=== PATIENT | male | born 1980 | race Caucasian/White ===

== ENCOUNTER 2018-03-20 14:41 | Emergency (ER) | payer OTHER, SELFPAY ==
[2018-03-20 15:02] VITALS: BP 139/78; PULSE 84; RESP 14; TEMP 36.8; O2SAT 87
--- NOTE | 2018-03-20 15:06 | DI.RAD.S_ITS ---
PROCEDURE: XR TIBIA FIBULA RT 2V INDICATIONS: crush injury bilat lower ext TECHNIQUE: 2 views of the tibia and fibula were acquired. COMPARISON: None. FINDINGS: Bones: No fractures or dislocations. No suspicious bony lesions. Soft tissues: No suspicious soft tissue calcifications or masses. IMPRESSION: No fracture. No osseous lesion. If symptoms and/or clinical suspicion for pathology persists, further assessment with repeat radiographs (7-10 days) or advanced imaging (e.g. CT, MRI or bone scan) may be helpful. Dictated by: Sofía Kolb MD, PhD on 03/20/2018 at 15:33 Approved by: Sofía Kolb MD, PhD on 03/20/2018 at 15:34
--- NOTE | 2018-03-20 15:06 | DI.RAD.S_ITS ---
PROCEDURE: XR TIBIA FUBULA RT 2V INDICATIONS: crush injury bilat lower ext TECHNIQUE: 2 views of the tibia and fibula were acquired. COMPARISON: None. FINDINGS: Bones: No fractures or dislocations. No suspicious bony lesions. Soft tissues: No suspicious soft tissue calcifications or masses. IMPRESSION: No fracture. No osseous lesion. If symptoms and/or clinical suspicion for pathology persists, further assessment with repeat radiographs (7-10 days) or advanced imaging (e.g. CT, MRI or bone scan) may be helpful. Dictated by: Sofía Kolb MD, PhD on 03/20/2018 at 15:32 Approved by: Sofía Kolb MD, PhD on 03/20/2018 at 15:33
--- NOTE | 2018-03-20 16:17 | ED.LOWEXIN ---
HPI - Extremity Injury (Lower) <LAN Boone - Last Filed: 03/20/18 18:53> General Chief Complaint: Extremity Injury, Lower Stated Complaint: crush injury to shins from car door Time Seen by Provider: 03/20/18 16:00 Source: patient Mode of arrival: ambulatory Limitations: no limitations History of Present Illness HPI Narrative: Patient is a 37-year-old male who presents with a chief complaint of bilateral lower leg pain. He states that his lower legs for pinched between a car door and the car. This occurred approximately noon. He was given 1 mg IM Dilaudid by EMS on [place]. He states his last tetanus shot was about 20 years ago. He denies any numbness or tingling and states he is able to ambulate. He states he has bruising and small lacerations on bilateral lower extremities. Related Data Home Medications Medication Instructions Recorded Confirmed No Known Home Medications 03/20/18 03/20/18 Allergies Allergy/AdvReac Type Severity Reaction Status Date / Time No Known Drug Allergies Allergy Verified 03/20/18 15:06 Review of Systems <LAN Boone - Last Filed: 03/20/18 18:53> Review of Systems GENERAL: Denies chills, fatigue, malaise, fever, sweats. HEENT: Denies sinus pain, ear pain, sore throat, difficulty swallowing, dizziness. RESPIRATORY: Denies dyspnea, cough, wheezing, hemoptysis, sputum. CARDIOVASCULAR: Denies chest pain, palpitations, orthopnea, edema, GASTROINTESTINAL: Denies nausea, vomiting, abdominal pain, diarrhea, constipation, melena. : Denies dysuria, frequency, incontinence, hematuria, urinary retention. MUSCULOSKELETAL: See HPI SKIN: See HPI NEUROLOGIC: Denies weakness, headache, numbness, change in speech, confusion, seizures, incoordination. PSYCHIATRIC: No concerning psychosocial issues. 12 point review of systems is negative except for those stated above Exam <LAN Boone - Last Filed: 03/20/18 18:53> Narrative Exam Narrative: GENERAL: This is a well-nourished, well-developed patient, no acute distress HEAD: Atraumatic. Normocephalic. No temporal or scalp tenderness. EYES: Pupils equal round and reactive. Extraocular motions intact. No scleral icterus. No injection or drainage. ENT: Nose without bleeding, purulent drainage or septal hematoma. Throat without erythema, tonsillar hypertrophy or exudate. Uvula midline. Airway patent. NECK: Trachea midline. No JVD or lymphadenopathy. Supple, nontender, no meningeal signs. CARDIOVASCULAR: Regular rate and rhythm without murmurs, gallops, or rubs. RESPIRATORY: Clear to auscultation. Breath sounds equal bilaterally. No wheezes, rales, or rhonchi. GASTROINTESTINAL: Abdomen soft, non-tender, nondistended. No hepato-splenomegaly, or palpable masses. No guarding. EXTREMITIES: Generalized pain to palpation bilateral lower extremities. Calves are soft bilaterally. Positive pedal pulses both sides. BACK: Nontender without deformity or crepitance. No flank tenderness. NEURO: AOx3. SKIN: 1.5 cm laceration on anterior aspect of left willis. 0.5 cm laceration on anterior aspect of right willis. Bleeding is controlled at both sites. No extending erythema or active bleeding. Ecchymosis surrounding both lacerations Initial Vital Signs Initial Vital Signs: Vital Signs Temperature 98.2 F 03/20/18 15:02 Pulse Rate 84 03/20/18 15:02 Respiratory Rate 14 03/20/18 15:02 Blood Pressure 139/78 03/20/18 15:02 Pulse Oximetry 87 L 03/20/18 15:02 <Yarelis Mathur DO - Last Filed: 03/21/18 11:44> Initial Vital Signs Initial Vital Signs: Vital Signs Temperature 98.2 F 03/20/18 15:02 Pulse Rate 84 03/20/18 15:02 Respiratory Rate 14 03/20/18 15:02 Blood Pressure 139/78 03/20/18 15:02 Pulse Oximetry 87 L 03/20/18 15:02 Course <PAUL Boone-LEE - Last Filed: 03/20/18 18:53> Orders Ordered: Discontinued Medications Diphtheria/Tetanus/Acell Pertussis (Adacel) 0.5 ml IM .ONCE ONE Stop: 03/20/18 16:01 Last Admin: 03/20/18 16:21 Dose: 0.5 ml Ketorolac Tromethamine (Toradol) 60 mg IM NOW ONE Stop: 03/20/18 16:01 Last Admin: 12/11/18 16:21 Dose: 60 mg Vital Signs - 8 hr 03/20/18 15:02 Temperature 98.2 F Pulse Rate 84 Respiratory Rate 14 Blood Pressure 139/78 Pulse Oximetry 87 L <Yarelis Mathur DO - Last Filed: 03/21/18 11:44> Orders Ordered: Discontinued Medications Diphtheria/Tetanus/Acell Pertussis (Adacel) 0.5 ml IM .ONCE ONE Stop: 03/20/18 16:01 Last Admin: 03/20/18 16:21 Dose: 0.5 ml Ketorolac Tromethamine (Toradol) 60 mg IM NOW ONE Stop: 03/20/18 16:01 Last Admin: 03/20/18 16:21 Dose: 60 mg Vital Signs - 8 hr 03/20/18 15:02 Temperature 98.2 F Pulse Rate 84 Respiratory Rate 14 Blood Pressure 139/78 Pulse Oximetry 87 L MDM - Extremity Injury (Lower) <LAN Boone - Last Filed: 03/20/18 18:53> Imaging Data tib fib r xray: Radiologist's impression: [address] [address] XRay Report Signed Patient: Michelle Carr#: [id number] : 1980Acct:[id number] Age/Sex: 37 / MDate of Service: 03/20/18 Loc: ED Accession Number: [id number] Procedure: XR tibia fibula RT 2V Ordering Provider: Tg Crowley PROCEDURE: XR TIBIA FUBULA RT 2V INDICATIONS: crush injury bilat lower ext TECHNIQUE: 2 views of the tibia and fibula were acquired. COMPARISON: None. FINDINGS: Bones: No fractures or dislocations. No suspicious bony lesions. Soft tissues: No suspicious soft tissue calcifications or masses. IMPRESSION: No fracture. No osseous lesion. If symptoms and/or clinical suspicion for pathology persists, further assessment with repeat radiographs (7-10 days) or advanced imaging (e.g. CT, MRI or bone scan) may be helpful. Dictated by: Sofía Kolb MD, PhD on 03/20/2018 at 15:32 Approved by: Sofía Kolb MD, PhD on 03/20/2018 at 15:33 tib fin left xray: Radiologist's impression: [address] [address] XRay Report Signed Patient: Michelle Carr#: [id number] : 1980Acct:[id number] Age/Sex: 37 / MDate of Service: 03/20/18 Loc: ED Accession Number: [id number] Procedure: XR tibia fibula LT 2V Ordering Provider: Tg Crowley-LEE PROCEDURE: XR TIBIA FIBULA RT 2V INDICATIONS: crush injury bilat lower ext TECHNIQUE: 2 views of the tibia and fibula were acquired. COMPARISON: None. FINDINGS: Bones: No fractures or dislocations. No suspicious bony lesions. Soft tissues: No suspicious soft tissue calcifications or masses. IMPRESSION: No fracture. No osseous lesion. If symptoms and/or clinical suspicion for pathology persists, further assessment with repeat radiographs (7-10 days) or advanced imaging (e.g. CT, MRI or bone scan) may be helpful. Dictated by: Sofía Kolb MD, PhD on 03/20/2018 at 15:33 Approved by: Sofía Kolb MD, PhD on 03/20/2018 at 15:34 [facility] Narrative Medical decision making narrative: Patient is a 37-year-old male who presents after compression of his bilateral lower extremities between a car and a car door. He had a negative x-ray tib-fib bilaterally. He does have small abrasions as well as ecchymosis. He had a Toradol injection for pain, an updated tetanus in his this cleansed. I discussed at length rest, ice, [id number] medications as needed and able for pain as well as monitoring circulation in the bilateral feet. He is neurovascularly intact, nontoxic and stable in the emergency department. I discussed at length monitoring for signs and symptoms of infection. He had no questions or concerns upon discharge. Discharge Plan Departure Patient Disposition: Home Clinical Impression: Abrasion, Contusion, Acute leg pain Discharge Date/Time: 03/20/18 17:07 Interventions: ED Discharge Assessment Last Done: 03/20/18 17:07 Instructions: DI for Contusion, DI for Abrasion, DI for Leg Pain Activity Restrictions/Additional Instructions: Your x-rays came back negative today. Please follow-up with primary care provider if he notices any signs or symptoms of infection including pus, fever or extending redness. Please rest her legs over the next few days. Please use [id number] pain medication as needed and able for pain. Please follow-up if you are concerned about the circulation to her feet. Prescriptions: No Action No Known Home Medications RF: 0 <Yarelis Mathur, - Last Filed: 03/21/18 11:44> [place] [facility] Attending [place] Attestation: I was immediately available in the department for consultation. Documentation has been reviewed. I agree with assessment and plan.
[2018-03-20] MEDS: KETOROLAC 60 MG/2 ML VIAL IM (16:21)
[2018-03-20] MEDS: TET,DIPH,PERTUSS(ACELL),VAC/PF 0.5 ML SYRINGE IM (16:21)
--- NOTE | 2018-03-20 16:37 | PC.NURSE ---
abrasions to bilateral shins. Right has a small puncture wound with old bleeding. No active bleeding at this time. Bruising and mild swelling noted. Left willis has abrasion present with some bruising and swelling noted no bleeding at this time. Bilateral abrasions cleaned with chlorahexadine and water. Bandaid with bacitracin placed.
== END 2018-03-20 17:07 | disposition home or self-care (01) ==
PROVIDERS: Emergency Provider Nurse Practitioner Family; Family Provider Family Medicine
DX: M79.604 Pain in right leg (principal); M79.605 Pain in left leg; S80.811A Abrasion, right lower leg, initial encounter; S80.812A Abrasion, left lower leg, initial encounter; W23.0XXA Caught, crushed, jammed, or pinched between moving objects, initial encounter
CPT/HCPCS: 73590; 90471; 96372; 99283; 90715; J1885

== ENCOUNTER → 2019-04-29 10:05 | Outpatient (CLI) | payer OTHER, SELFPAY ==
--- NOTE | 2019-04-29 10:07 | DI.RAD.S_ITS ---
PROCEDURE: XR KNEE LT 3V INDICATIONS: Postsurgical pain TECHNIQUE: 3 views of the knee were acquired. COMPARISON: None. FINDINGS: Bones: No fractures or dislocations. No suspicious bony lesions. Soft tissues: No joint effusion. No suspicious soft tissue calcifications. IMPRESSION: Normal for age, source of current postsurgical pain symptoms is not seen. Dictated by: Neri Hernandez M.D. on 04/29/2019 at 12:21 Approved by: Neri Hernandez M.D. on 04/29/2019 at 12:21
== END ==
PROVIDERS: PCP Family Medicine; Visit Provider Physical Medicine & Rehabilitation
DX: G89.18 Other acute postprocedural pain (principal); M25.562 Pain in left knee
CPT/HCPCS: 73562

== ENCOUNTER 2020-08-11 17:46 | Emergency (ER) | payer OTHER, MEDICAID, SELFPAY ==
[2020-08-11] VITALS (11 sets, daily range): BP systolic 105–139; BP diastolic 69–86; PULSE 56–80; RESP 10–31; TEMP 37.1; O2SAT 95–100; BMI 28.5
--- NOTE | 2020-08-11 17:57 | DI.RAD.S_ITS ---
PROCEDURE: XR CHEST 1V INDICATIONS: chest pain TECHNIQUE: One view of the chest was acquired. COMPARISON: None. FINDINGS: Surgical changes and devices: None. Lungs and pleura: Lungs are clear. No pleural effusions or pneumothorax. Mediastinum: Mediastinal contours appear normal. Heart size is normal. Bones and chest wall: No suspicious bony lesions. Overlying soft tissues appear unremarkable. IMPRESSION: No acute cardiopulmonary pathology. Dictated by: Isaiah Segura M.D. on 08/11/2020 at 18:24 Approved by: Isaiah Segura M.D. on 08/11/2020 at 18:24
[2020-08-11 18:22] LABS: Add Manual Diff / Slide Review NO; Basophils Absolute Auto 0 /uL (0-100); Basophils Percent Auto 0.6 % (0-2); Eosinophils Absolute Auto 100 /uL (0-450); Eosinophils Percent Auto 0.9 % (2-4); Hemoglobin 15.1 g/dL (13.5-17.5); Lymphocytes Absolute Auto 2000 /uL (1100-4500); Lymphocytes Percent Auto 34.1 % (25-40); Mean Corpuscular HGB Conc 35.1 % (30-36); Mean Corpuscular Hemoglobin 30.6 PG (26-34); Mean Corpuscular Volume 87.2 fL (80-100); Monocytes Absolute Auto 500 /uL (0-900); Monocytes Percent Auto 7.9 % (3-14); Neutrophils Absolute Auto 3200 /uL (1500-7000); Neutrophils Percent Auto 56.5 % (50-75); Platelet Count 242 X10^3/uL (150-400); Red Blood Cell Count 4.94 X10^6/uL (4.5-5.9); Red Cell Distribution Width 12.4 % (11.6-14.8); White Blood Cell Count 5.8 X10^3/uL (4.5-11.0)
[2020-08-11 18:25] LABS: INR 1.1 (0.9-1.3); Prothrombin Time 11.9 SECONDS (10.1-12.7)
[2020-08-11 18:28] LABS: PTT Partial Thromboplastin Tim 36 SECONDS (26.4-36.2)
--- NOTE | 2020-08-11 18:29 | ED.CHESTPAIN ---
HPI - Chest Pain General Chief Complaint: Chest Pain Stated Complaint: Chest pain Time Seen by Provider: 08/11/20 18:05 Source: patient Mode of arrival: Ambulatory Limitations: no limitations History of Present Illness HPI narrative: 40-year-old male nonsmoker with history of epigastric pain and suspicion of reflux presents with a chief complaint of many days of upper abdominal and lower chest pain. He states it is burning and aching in nature and seems to be exacerbated by eating and laying flat. He occasionally has hiccups and has a odd effervescent taste in the back of his mouth. He has seen his primary care provider and has had prescriptions for not only PPIs but also recently started Carafate. He has an upcoming appointment with a gastro enterolysis, presumably to discuss the utility of endoscopy. The patient denies any exertional component to his symptoms nor radiation to his back. He is not short of breath and has had no cough, fever or chills. He denies recent travel, history of blood clot or cancer. Patient states that he is asymptomatic during his visit MD complaint: chest pain Onset (ago): week(s) Duration: intermittent Pain location: substernal Severity: moderate Quality: aching and other Pain radiation: none Exacerbating factors: eating and supine Treatments prior to arrival chest pain: other Related Data Home Medications Medication Instructions Recorded Confirmed acetaminophen 500 mg tablet 1,000 mg PO BID tab 04/22/19 10/02/19 diphenhydramine 25 2 tab PO BEDTIME PRN 04/22/19 10/02/19 mg-acetaminophen 500 mg tablet trazodone PO 06/03/19 10/02/19 etodolac 600 mg tablet,extended 600 mg PO DAILY 10/02/19 10/02/19 release 24 hr Allergies Allergy/AdvReac Type Severity Reaction Status Date / Time No Known Drug Allergies Allergy Verified 08/11/20 17:58 Review of Systems Constitutional Constitutional: Denies chills, Denies fatigue, Denies fever(s), Denies frequent falls, Denies lethargy and Denies weakness Eyes Eyes: Denies change in vision, Denies eye discharge, Denies irritation and Denies loss of vision ENT Ears, Nose, Mouth, and Throat: Denies change in voice, Denies dizziness, Denies neck pain, Denies sore throat and Denies throat swelling Cardiovascular Cardiovascular: Reports chest pain, Denies irregular heart rhythm, Denies lightheadedness, Denies palpitations, Denies dyspnea, Denies dyspnea on exertion and Denies orthopnea Respiratory Respiratory: Denies cough, Denies dyspnea, Denies dyspnea on exertion and Denies wheezing Gastrointestinal Gastrointestinal: Reports abdominal pain, Reports belching, Denies change in bowel habits, Denies diarrhea, Denies nausea and Denies vomiting Musculoskeletal Musculoskeletal: Denies neck pain and Denies numbness Integumentary/Breasts Skin/Breast: Denies pruritus, Denies erythema, Denies rash and Denies wounds Neurologic Neurologic: Denies behavioral changes, Denies confusion, Denies dizziness, Denies frequent falls, Denies loss of vision, Denies numbness and Denies weakness Psychiatric Psychiatric: Denies anxiety, Denies behavioral changes, Denies confusion, Denies depression, Denies homicidal ideation and Denies suicidal ideation Endocrine Endocrine: Denies fatigue, Denies flushing and Denies palpitations Hematologic/Lymphatic Hematologic/Lymphatic: Denies easy bruising Allergic/Immunologic Allergic/Immunologic: Denies urticaria, Denies throat swelling and Denies wheezing Patient History Medical History Chronic knee pain Gait instability Lateral meniscal tear Surgical History H/O arthroscopy of right knee Status post lateral meniscectomy of left knee Family History Father Arthritis Hyperlipidemia Grandfather Cancer Heart disease Diabetes mellitus Glaucoma Grandmother Colon cancer Diabetes mellitus Hypertension Congestive heart failure Social History Smoking Status: Never smoker Smoking Status: Never smoker alcohol intake frequency: holidays/special occasions only Substance Use Type: does not use Exam Narrative Exam Narrative: GENERAL: [40] year old patient appears stated age. Well-nourished, well-developed patient, in mild distress. HEAD: Atraumatic. Normocephalic. EYES: Pupils equal round and reactive. Extraocular motions intact. No scleral icterus. No injection or drainage. ENT: Nose without bleeding, purulent drainage. Throat without erythema, tonsillar hypertrophy or exudate. Airway patent. NECK: Trachea midline. Non tender CARDIOVASCULAR: Regular rate and rhythm without murmurs, gallops, or rubs. RESPIRATORY: Clear to auscultation. Breath sounds equal bilaterally. No wheezes, rales, or rhonchi. GASTROINTESTINAL: Abdomen soft, non-tender, nondistended. EXTREMITIES: No edema or joint tenderness. BACK: Nontender without deformity or crepitance. No flank tenderness. NEURO: AOx3. SKIN: No rash or erythema of visible areas Initial Vital Signs Initial Vital Signs: Vital Signs Temperature 98.7 F 08/11/20 17:50 Pulse Rate 61 08/11/20 17:50 Respiratory Rate 23 08/11/20 17:50 Blood Pressure 139/79 08/11/20 17:50 Pulse Oximetry 98 08/11/20 17:50 Scores HEART Score Heart Score history: Slightly Suspicious Heart Score EKG: Normal Heart Score Age: < 45 years old Heart Score risk factors: No known risk factors Heart Score troponin: < or = to normal limit Heart Score Total: 0 Course Orders Ordered: ED Orders 08/11/20 17:52 Complete Blood Count AUTO DIFF Stat Comprehensive Metabolic Panel Stat Lipase Stat Partial Thromboplastin Time Stat Prothrombin Time INR Stat Troponin & CK Cardiac Panel Stat 08/11/20 17:54 EKG-12 Lead Stat 08/11/20 17:57 XR chest 1V Stat 08/11/20 19:01 EKG-12 Lead Stat 08/11/20 19:22 D Dimer Stat Vital Signs Vital signs: Vital Signs - 8 hr 08/11/20 17:50 08/11/20 17:54 08/11/20 18:00 Temperature 98.7 F Pulse Rate 61 61 65 Respiratory Rate 23 10 L 18 Blood Pressure 139/79 Pulse Oximetry 98 100 98 08/11/20 18:01 08/11/20 18:30 08/11/20 18:40 Temperature Pulse Rate 67 57 L 65 Respiratory Rate 20 17 31 H Blood Pressure 139/86 113/71 105/69 Pulse Oximetry 96 97 98 08/11/20 19:00 08/11/20 19:30 Temperature Pulse Rate 56 L 61 Respiratory Rate 19 25 H Blood Pressure 109/70 121/80 Pulse Oximetry 95 96 MDM - Chest Pain Lab Data Result diagrams: 08/11/20 17:52 08/11/20 17:52 Labs: Lab Results 08/11/20 08/11/20 08/11/20 Range/Units 17:52 17:52 17:52 WBC 5.8 (4.5-11.0) X10^3/uL RBC 4.94 (4.5-5.9) X10^6/uL Hgb 15.1 (13.5-17.5) g/dL Hct 43.0 (41-53) % MCV 87.2 (80-100) fL MCH 30.6 (26-34) PG MCHC 35.1 (30-36) % RDW 12.4 (11.6-14.8) % Plt Count 242 (150-400) X10^3/uL Neut % (Auto) 56.5 (50-75) % Lymph % (Auto) 34.1 (25-40) % [place] % (Auto) 7.9 (3-14) % Eos % (Auto) 0.9 L (2-4) % Baso % (Auto) 0.6 (0-2) % Neut # (Auto) 3200 (5143-9397) /uL Lymph # (Auto) 2000 (8310-5115) /uL [place] # (Auto) 500 (0-900) /uL Eos # (Auto) 100 (0-450) /uL Baso # (Auto) 0 (0-100) /uL PT 11.9 (10.1-12.7) SECONDS INR 1.1 (0.9-1.3) APTT 36 (26.4-36.2) SECONDS D-Dimer (<230) ng/mL Sodium 140 (137-145) mmol/L Potassium 4.2 (3.4-5.1) mmol/L Chloride 103 (98-107) mmol/L Carbon Dioxide 28 (22-32) mmol/L BUN 8 L (9-20) mg/dL Creatinine 0.99 (0.66-1.25) mg/dL Estimated GFR > 60.0 (>60) mL/min BUN/Creatinine Ratio 8.1 (6-22) Glucose 101 H (70-100) mg/dL Calcium 9.7 (8.4-10.2) mg/dL Total Bilirubin 0.5 (0.2-1.3) mg/dL AST 37 (17-59) IU/L ALT 46 (<50) IU/L Alkaline Phosphatase 69 (38-126) U/L Total Creatine Kinase 133 (55-170) U/L CK-MB (CK-2) 0.78 (<2.37) ng/mL CK-MB (CK-2) Rel Index 0.6 L (1.5-5.0) % Troponin I < 0.012 (0.01-0.034) ng/mL Total Protein 8.1 (6.3-8.2) g/dL Albumin 4.8 (3.5-5.0) g/dL Globulin 3.3 (1.7-4.1) g/dL Albumin/Globulin Ratio 1.5 (1.0-2.8) Lipase 94 (23-300) U/L 08/11/20 Range/Units 19:22 WBC (4.5-11.0) X10^3/uL RBC (4.5-5.9) X10^6/uL Hgb (13.5-17.5) g/dL Hct (41-53) % MCV (80-100) fL MCH (26-34) PG MCHC (30-36) % RDW (11.6-14.8) % Plt Count (150-400) X10^3/uL Neut % (Auto) (50-75) % Lymph % (Auto) (25-40) % [place] % (Auto) (3-14) % Eos % (Auto) (2-4) % Baso % (Auto) (0-2) % Neut # (Auto) (1381-4743) /uL Lymph # (Auto) (6789-3495) /uL [place] # (Auto) (0-900) /uL Eos # (Auto) (0-450) /uL Baso # (Auto) (0-100) /uL PT (10.1-12.7) SECONDS INR (0.9-1.3) APTT (26.4-36.2) SECONDS D-Dimer < 200 (<230) ng/mL Sodium (137-145) mmol/L Potassium (3.4-5.1) mmol/L Chloride (98-107) mmol/L Carbon Dioxide (22-32) mmol/L BUN (9-20) mg/dL Creatinine (0.66-1.25) mg/dL Estimated GFR (>60) mL/min BUN/Creatinine Ratio (6-22) Glucose (70-100) mg/dL Calcium (8.4-10.2) mg/dL Total Bilirubin (0.2-1.3) mg/dL AST (17-59) IU/L ALT (<50) IU/L Alkaline Phosphatase (38-126) U/L Total Creatine Kinase (55-170) U/L CK-MB (CK-2) (<2.37) ng/mL CK-MB (CK-2) Rel Index (1.5-5.0) % Troponin I (0.01-0.034) ng/mL Total Protein (6.3-8.2) g/dL Albumin (3.5-5.0) g/dL Globulin (1.7-4.1) g/dL Albumin/Globulin Ratio (1.0-2.8) Lipase (23-300) U/L Urine Dip Bedside Urine Glucose Negative Bedside Urine Bilirubin - Negative Bedside Urine Ketone - Negative Urine Specific [place] 1.015 Bedside Urine Occult Blood - Negative Bedside Urine pH 6.5 Bedside Urine Protein - Negative Bedside Urine Urobilinogen - Negative Bedside Urine Nitrite - Negative Bedside Urine Leukocytes - Negative Esterase Imaging Data Chest x-ray: Radiologist's Impression: [address] [address] ReportSigned Patient: Michelle Carr#: [id number]: 1980Acct:[id number]/Sex: 40 / MDate of Service: 08/11/20Loc: EDAccession Number: [id number] Procedure: XR chest 1V Ordering Provider: Graeme Batista D.O. PROCEDURE: XR CHEST 1V INDICATIONS: chest pain TECHNIQUE: One view of the chest was acquired. COMPARISON: None. FINDINGS: Surgical changes and devices: None. Lungs and pleura: Lungs are clear. No pleural effusions or pneumothorax. Mediastinum: Mediastinal contours appear normal. Heart size is normal. Bones and chest wall: No suspicious bony lesions. Overlying soft tissues appear unremarkable. IMPRESSION: No acute cardiopulmonary pathology. Dictated by: Isaiah Segura M.D. on 08/11/2020 at 18:24 Approved by: Isaiah Segura M.D. on 08/11/2020 at 18:24 [facility] Narrative Medical decision making narrative: Multiple causes of chest pain considered including [place], PE, pneumothorax, pneumonia, aortic dissection, and pleurisy. Patient reports no radiation, no diaphoresis, no provocation with exertion, and no vomiting Patient's symptoms improved over duration of stay with above-stated therapies. Findings and discharge diagnosis discussed with patient/family followed by verbalization of understanding Return precautions discussed with patient/family whom verbalize understanding. Discharge Plan Departure Patient Disposition: Home Clinical Impression: Atypical chest pain, Abdominal pain, epigastric Instructions: DI for Atypical Chest Pain, DI for Epigastric Pain Activity Restrictions/Additional Instructions: *You have been diagnosed with [atypical chest pain. Your history, physical exam, EKGs and blood work would suggest very low likelihood of a cardiac or blood clot issue.] *What to do: *Please continue to take your regular medications as directed. [ ] New medication prescriptions sent to your pharmacy: [ ] [ ] New medication written as a paper prescription [x ] No new medications given *Please follow up with your primary care provider in 2-3 days, call for an appointment. Let them know you were seen in the Emergency Department and that we ask that you be seen in follow up. We will electronically transmit a record of today's note if your PCP is in our system * avoid alcohol, caffeine, nicotine, spicy foods, fatty foods, dairy and other possible dietary triggers. *Return to Emergency Department if you should have any new, worsening or concerning symptoms, such as [fever greater than 101 F, shaking chills, worsening pain, persistent vomiting or other bothersome symptoms] Prescriptions: No Action acetaminophen [Tylenol Extra Strength] 500 mg tablet 1,000 mg PO BID RF: 0 diphenhydramine-acetaminophen [Tylenol PM Extra Strength] 25-500 mg tablet 2 tab PO BEDTIME PRNRF: 0 trazodone PO RF: 0 etodolac 600 mg tablet extended release 24 hr 600 mg PO DAILY RF: 0 Referrals: Michael Flowers MD [Primary Care Provider] -
[2020-08-11 18:40] LABS: Alanine Aminotransferase 46 IU/L (<50); Albumin 4.8 g/dL (3.5-5.0); Albumin Globulin Ratio 1.5 (1.0-2.8); Alkaline Phosphatase 69 U/L (38-126); Aspartate Aminotransferase 37 IU/L (17-59); BUN Creatinine Ratio 8.1 (6-22); Bilirubin Total 0.5 mg/dL (0.2-1.3); Blood Urea Nitrogen 8 mg/dL (9-20); Calcium 9.7 mg/dL (8.4-10.2); Carbon Dioxide 28 mmol/L (22-32); Chloride 103 mmol/L (98-107); Creatine Kinase 133 U/L (55-170); Estimated Glomerular Filt Rate > 60.0 mL/min (>60); Globulin 3.3 g/dL (1.7-4.1); Glucose 101 mg/dL (70-100); Lipase 94 U/L (23-300); Potassium 4.2 mmol/L (3.4-5.1); Sodium 140 mmol/L (137-145); Total Protein 8.1 g/dL (6.3-8.2)
[2020-08-11 18:46] LABS: HEMOLYSIS 66 (0-50)
[2020-08-11 18:52] LABS: Troponin I < 0.012 ng/mL (0.01-0.034)
[2020-08-11 18:56] LABS: CKMB % Relative Index 0.6 % (1.5-5.0); Creatine Kinase MB 0.78 ng/mL (<2.37)
[2020-08-11 19:51] LABS: D Dimer < 200 ng/mL (<230)
== END 2020-08-11 20:46 | disposition home or self-care (01) ==
PROVIDERS: Emergency Medicine; Emergency Provider Emergency Medicine; PCP Orthopaedic Surgery
DX: R07.89 Other chest pain (principal); R10.13 Epigastric pain
CPT/HCPCS: 36415; 71045; 80053; 81003; 82550; 82553; 83690; 84484; 85025; 85379; 85610; 85730; 93005; 99284

== ENCOUNTER → 2020-09-23 13:32 | Outpatient (CLI) | payer OTHER, SELFPAY ==
--- NOTE | 2020-09-23 13:34 | DI.RAD.S_ITS ---
PROCEDURE: XR KNEE LT 3V INDICATIONS: LEFT KNEE PAIN TECHNIQUE: 3 views of the knee were acquired. COMPARISON: [facility], CR, XR KNEE LT 3V, 04/29/2019, 10:14. FINDINGS: Bones: No fractures or dislocations. No suspicious bony lesions. Soft tissues: No joint effusion. No suspicious soft tissue calcifications. IMPRESSION: Normal for age, source of current pain symptoms is not seen. Dictated by: Neri Hernandez M.D. on 09/23/2020 at 15:19 Approved by: Neri Hernandez M.D. on 09/23/2020 at 15:20
--- NOTE | 2020-09-23 13:34 | DI.RAD.S_ITS ---
PROCEDURE: XR KNEE RT 3V INDICATIONS: RIGHT KNEE PAIN TECHNIQUE: 3 views of the knee were acquired. COMPARISON: [facility], CR, XR KNEE LT 3V, 04/29/2019, 10:14. FINDINGS: Bones: No fractures or dislocations. No suspicious bony lesions. Soft tissues: No joint effusion. No suspicious soft tissue calcifications. IMPRESSION: Normal for age, source of current pain symptoms is not seen. Dictated by: Neri Hernandez M.D. on 09/23/2020 at 15:19 Approved by: Neri Hernandez M.D. on 09/23/2020 at 15:19
== END ==
PROVIDERS: PCP Specialist; Referring Provider Physical Medicine & Rehabilitation; Visit Provider Physical Medicine & Rehabilitation
DX: M25.561 Pain in right knee (principal); R26.81 Unsteadiness on feet; Z98.890 Other specified postprocedural states
CPT/HCPCS: 73562